=== PATIENT | male | born 1980 | race Caucasian/White ===

== ENCOUNTER → 2025-05-07 19:45 | Outpatient (BNV) | payer OTHER, SELFPAY | PROVIDERS: Emergency Provider Emergency Medicine; Visit Provider Radiology Vascular & Interventional Radiology | DX: S02.40DA Maxillary fracture, left side, initial encounter for closed fracture (principal) | CPT/HCPCS: 70140; 70486 ==

== ENCOUNTER 2025-05-07 19:50 | Emergency (ER) | payer OTHER, SELFPAY ==
--- NOTE | ~2025-05-07 | CT_ITS ---
CLINICAL HISTORY: L eye swelling CT maxillofacial without contrast Comparison: None provided Findings: Comminuted fractures involving the left maxillary sinus anna and left orbital floor. No entrapment of the left inferior rectus. Extensive subcutaneous emphysema in the left periorbital region with partial opacification of the bilateral maxillary sinuses. Comminuted fracture along the greater wing of the left sphenoid Pterygoid plates appear intact. The lamina papyracea also appear intact. Age-indeterminate nondisplaced nasal bone fracture, chronic appearing. Visualized intracranial contents are within normal limits. No foreign bodies. IMPRESSION: Comminuted fractures involving the left maxillary sinus and bony orbit as detailed. Extensive subcutaneous emphysema within the left periorbital region and left facial soft tissues. Comminuted fracture of the greater wing of the left sphenoid. This document has been electronically signed by: Jere Covington MD on 05/07/2025 21:34:41
--- NOTE | ~2025-05-07 | XR_ITS ---
CLINICAL HISTORY: eye injury 4 view facial bones Comparison: None provided Findings: Left periorbital soft tissue emphysema. Orbital floor fracture on the left with partial opacification of the maxillary sinuses bilaterally. No radiopaque foreign body. IMPRESSION: Left orbital floor fracture with periorbital emphysema. Partial opacification of the bilateral maxillary sinuses. This document has been electronically signed by: Jere Covington MD on 05/07/2025 21:29:59
[2025-05-07 19:57] VITALS: BP 163/88; PULSE 95; RESP 20; TEMP 37.1; O2SAT 95; BMI 35.6
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
--- NOTE | 2025-05-07 20:41 | PC.NURSE ---
2020: assumed care of patient, pt A+Ox3, eye injury assessment showed crepitus under the left eye upon palpitation, facial Xray pending, charge notified and CT order placed
--- NOTE | 2025-05-07 21:31 | PC.NURSE ---
2124: this technical proposal writer exited from a pt's room, at this time the of this pt stated You're losing him pt then exited the room stating he can't wait and attempted to leave ED. 2125: Provider Symone Jarquin spoke w/ pt and educated the pt of the risks of not receiving tx, pt adamant on leaving AMA. 2127: Ed Jarquin completing AMA paperwork, pt exited room again and proceeded out of ED, this technical proposal writer attempted to get pt to sign paperwork, the pt threw her hands in the air and stated He won't be doing that 2128: Speaking with charge nurse Cassidy, and ed Jarquin about pt leaving AMA w/o paperwork, blocker metal base Shadia made us aware that she spoke w/ the pt and said pt stated Hospitals are bad places, people here and continued to storm out of ED, after speaking w/ the pt blocker metal base Shadia said he is willing to come back after having a cigarette and willing to come back for tx. Charge nurse Benjamin and Ed Jarquin agreed to attempt to bring pt back into room after a few minutes, w/ strict guidelines set for continued care. 2130: Charge Nurse Cassidy speaking w/ pt 2137: pt back in room w/ willing to continue tx, ed David ordered nicotine gum
--- NOTE | 2025-05-07 21:55 | PC.NURSE ---
at this time this senior mortgage underwriter attempted to medicate the pt per MAR, provider Symone Jarquin informed me tetracaine could not be administered, pt then refused nicotine lozenge when offered
[2025-05-07 22:39] VITALS: BP 168/84; PULSE 86; RESP 16; TEMP 36.7; O2SAT 94
--- NOTE | 2025-05-07 22:49 | PC.NURSE ---
pt in room w/ , ambulating to bathroom w/ steady gait, appears to be in no apparent distress, less agitated and anxious, speaking w/ provider Joann
[2025-05-07 23:14] VITALS: BP 168/84; PULSE 86; RESP 16; TEMP 36.7; O2SAT 94
== END 2025-05-07 23:20 | disposition home or self-care (01) ==
PROVIDERS: Emergency Provider Emergency Medicine
DX: S02.832A Fracture of medial orbital wall, left side, initial encounter for closed fracture (principal); R51.9 Headache, unspecified; X50.1XXA Overexertion from prolonged static or awkward postures, initial encounter; Y93.9 Activity, unspecified; Y92.9 Unspecified place or not applicable; Y99.8 Other external cause status
CPT/HCPCS: 70140; 70486; 99284